=== PATIENT | male | born 1940 | race African-American/Black ===

== ENCOUNTER 2019-11-12 17:53 | Inpatient (IN) | payer OTHER, MEDICAID ==
[~2019-11-12] VITALS: Ht 157.5 cm; Wt 64.9 kg
[2019-11-12] VITALS: BP 164/71
[2019-11-12] MEDS ORDERED: LABETALOL 5MG/ML SYR 20 MG/4 ML SYRINGE IV ONE (18:30)
[2019-11-12 19:02] LABS: BASOPHILS % 0.7 % (0.0-2.0); EOSINOPHILS % 0.9 % (0.0-5.0); HEMATOCRIT. 40.8 % (42.0-52.0); HEMOGLOBIN. 14.1 g/dL (14.0-18.0); LYMPHOCYTES % 22.3 % (20.0-50.0); MEAN CORPUSCULAR HEMOGLOBIN 32.2 pg (28.0-32.0); MEAN CORPUSCULAR VOLUME 93.4 fL (80.0-94.0); MEAN PLATELET VOLUME 8.9 fl (7.4-10.4); MONOCYTES % 8.2 % (2.0-8.0); NEUTROPHILS % 67.9 % (40.0-76.0); PLATELET 184 x1000/uL (130-400); RED BLOOD CELL COUNT 4.37 mill/uL (4.7-6.1); RED CELL DISTRIBUTION WIDTH 13.3 % (11.6-14.6)
[2019-11-12 19:03] LABS: CHLORIDE 105 mEq/L (98-107)
[2019-11-12 19:07] LABS: PROTHROMBIN TIME 10.5 sec (9.6-11.0)
[2019-11-12 19:08] LABS: ETHANOL BLOOD < 10 mg/dL
[2019-11-12 19:11] LABS: LDL CHOLESTEROL 93 mg/dL (5-100)
[2019-11-12 19:12] LABS: CREATINE KINASE 296 IU/L (39-308)
[2019-11-12 20:15] LABS: CLARITY URINE CLEAR (CLEAR); COLOR URINE YELLOW (YELLOW); KETONES URINE NEGATIVE (NEGATIVE); LEUKOCYTE ESTERASE URINE NEGATIVE (NEGATIVE); NITRITE URINE NEGATIVE (NEGATIVE); OCCULT BLOOD URINE NEGATIVE (NEGATIVE); PROTEIN URINE NEGATIVE (NEGATIVE); SPECIFIC GRAVITY URINE 1.025 (1.005-1.030); UROBILINOGEN URINE 0.2 E.U./dL (0.2-1.0)
[2019-11-12 20:50] LABS: *AMPHETAMINES SCREEN URINE NEGATIVE (NEGATIVE); *BARBITURATES SCREEN URINE NEGATIVE (NEGATIVE); *BENZODIAZEPINES SCREEN URINE NEGATIVE (NEGATIVE); *COCAINE SCREEN URINE NEGATIVE (NEGATIVE)
[2019-11-12 20:51] LABS: CANNABINOID URINE SCREEN NEGATIVE (NEGATIVE); METHADONE URINE SCREEN NEGATIVE (NEGATIVE); OPIATES URINE SCREEN NEGATIVE (NEGATIVE); PHENCYCLIDINE URINE SCREEN NEGATIVE (NEGATIVE)
[2019-11-12] MEDS ORDERED: ONDANSETRON HCL 4MG/2ML INJ IV PRN (22:00)
[2019-11-12] MEDS ORDERED: ATORVASTATIN CALCIUM 40MG TABLET PO SCH (22:00)
[2019-11-12] MEDS ORDERED: HYDRALAZINE 20MG/ML VIAL IV PRN (22:00)
[2019-11-12] MEDS ORDERED: ACETAMINOPHEN 325MG TABLET PO PRN (22:00)
[2019-11-12 22:44] VITALS: BP 170/90
[2019-11-12 23:00] VITALS: BP 170/90
[2019-11-12] MEDS ORDERED: IOHEXOL-350 100 ML BOTTLE ONE (23:08)
[2019-11-12] MEDS ORDERED: ATOR20TA PO (23:37)
[2019-11-13] VITALS (7 sets, daily range): BP systolic 127–164; BP diastolic 71–88
[2019-11-13 06:18] LABS: CHLORIDE 111 mEq/L (98-107)
[2019-11-13 06:31] LABS: LDL CHOLESTEROL 86 mg/dL (5-100)
[2019-11-13 06:32] LABS: HDL CHOLESTEROL 33 mg/dL (40-59)
[2019-11-13 06:46] LABS: BASOPHILS % 0.6 % (0.0-2.0); EOSINOPHILS % 1.6 % (0.0-5.0); HEMATOCRIT. 39.4 % (42.0-52.0); HEMOGLOBIN. 13.8 g/dL (14.0-18.0); LYMPHOCYTES % 22.6 % (20.0-50.0); MEAN CORPUSCULAR HEMOGLOBIN 32.4 pg (28.0-32.0); MEAN CORPUSCULAR VOLUME 92.9 fL (80.0-94.0); MONOCYTES % 9.3 % (2.0-8.0); NEUTROPHILS % 65.9 % (40.0-76.0); PLATELET 182 x1000/uL (130-400); RED BLOOD CELL COUNT 4.24 mill/uL (4.7-6.1); RED CELL DISTRIBUTION WIDTH 13.6 % (11.6-14.6)
[2019-11-13] MEDS: ASPIRIN 81MG EC TABLET PO SCH (09:15)
[2019-11-13] MEDS: HEPARIN 5000 UNITS/ML VIAL SUBCUT SCH ×2 (09:16→20:03)
[2019-11-13] MEDS: POTASSIUM CHLORIDE 20MEQ TABLET SR PO SCH (11:51)
[2019-11-13] MEDS: AMLODIPINE 5MG TABLET PO SCH (11:52)
[2019-11-13 14:35] LABS: FOLIC ACID (FOLATE) SERUM > 20.00 ng/mL (>5.38)
[2019-11-13 14:46] LABS: VITAMIN B12 SERUM 275 pg/mL (211-911)
[2019-11-13 16:40] LABS: FERRITIN 87 ng/mL (22-322)
[2019-11-13] MEDS: EZETIMIBE 10MG TABLET PO SCH (16:47)
[2019-11-14 00:13] VITALS: BP 148/76
[2019-11-14 04:18] VITALS: BP 121/60
[2019-11-14 06:25] LABS: CHLORIDE 109 mEq/L (98-107)
[2019-11-14 06:50] LABS: BASOPHILS % 0.6 % (0.0-2.0); EOSINOPHILS % 2.1 % (0.0-5.0); HEMATOCRIT. 39.3 % (42.0-52.0); HEMOGLOBIN. 13.5 g/dL (14.0-18.0); LYMPHOCYTES % 22.5 % (20.0-50.0); MEAN CORPUSCULAR VOLUME 93.2 fL (80.0-94.0); MEAN PLATELET VOLUME 9.2 fl (7.4-10.4); MONOCYTES % 9.4 % (2.0-8.0); NEUTROPHILS % 65.4 % (40.0-76.0); PLATELET 178 x1000/uL (130-400); RED BLOOD CELL COUNT 4.22 mill/uL (4.7-6.1); RED CELL DISTRIBUTION WIDTH 13.4 % (11.6-14.6)
[2019-11-14 08:00] VITALS: BP 154/80
[2019-11-14] MEDS: POTASSIUM CHLORIDE 20MEQ TABLET SR PO SCH (09:37)
[2019-11-14] MEDS: AMLODIPINE 5MG TABLET PO SCH (09:38)
[2019-11-14] MEDS: EZETIMIBE 10MG TABLET PO SCH (09:38)
[2019-11-14] MEDS: HEPARIN 5000 UNITS/ML VIAL SUBCUT SCH ×2 (09:38→20:00)
[2019-11-14] MEDS: ASPIRIN 81MG EC TABLET PO SCH (09:38)
[2019-11-14 12:00] VITALS: BP 138/69
[2019-11-14] MEDS ORDERED: HYDR-4134 PO (14:44)
[2019-11-14] MEDS ORDERED: CLOP75TA4 MT (14:44)
[2019-11-14] MEDS ORDERED: LIP40 PO (14:44)
[2019-11-14] MEDS ORDERED: AMLO5TAB88 PO (14:44)
[2019-11-14] MEDS ORDERED: ASPI-1158 PO (14:44)
[2019-11-14] MEDS: HYDRALAZINE HCL 25MG TABLET PO SCH ×2 (14:51→19:59)
[2019-11-14] MEDS: CLOPIDOGREL 75MG TABLET PO SCH (14:53)
[2019-11-14 16:00] VITALS: BP 143/68
[2019-11-14] MEDS: ATORVASTATIN CALCIUM 40MG TABLET PO SCH (19:59)
[2019-11-14 20:43] VITALS: BP 156/80
[2019-11-15] VITALS: BP 171/84
[2019-11-15 04:00] VITALS: BP 141/79
[2019-11-15] MEDS: HYDRALAZINE HCL 25MG TABLET PO SCH (04:33)
[2019-11-15 06:56] LABS: BASOPHILS % 0.6 % (0.0-2.0); EOSINOPHILS % 2.7 % (0.0-5.0); HEMATOCRIT. 41.5 % (42.0-52.0); HEMOGLOBIN. 14.2 g/dL (14.0-18.0); LYMPHOCYTES % 22.2 % (20.0-50.0); MEAN CORPUSCULAR HEMOGLOBIN 31.8 pg (28.0-32.0); MEAN CORPUSCULAR VOLUME 93.2 fL (80.0-94.0); MEAN PLATELET VOLUME 9.2 fl (7.4-10.4); MONOCYTES % 8.3 % (2.0-8.0); NEUTROPHILS % 66.2 % (40.0-76.0); PLATELET 188 x1000/uL (130-400); RED BLOOD CELL COUNT 4.45 mill/uL (4.7-6.1); RED CELL DISTRIBUTION WIDTH 13.6 % (11.6-14.6)
[2019-11-15 07:05] LABS: CHLORIDE 108 mEq/L (98-107)
[2019-11-15 08:01] VITALS: BP 150/68
[2019-11-15] MEDS: EZETIMIBE 10MG TABLET PO SCH (08:58)
[2019-11-15] MEDS: ASPIRIN 81MG EC TABLET PO SCH (08:58)
[2019-11-15] MEDS: CLOPIDOGREL 75MG TABLET PO SCH (08:59)
[2019-11-15] MEDS: HEPARIN 5000 UNITS/ML VIAL SUBCUT SCH ×2 (08:59→20:48)
[2019-11-15] MEDS: AMLODIPINE 5MG TABLET PO SCH ×2 (08:59→20:51)
[2019-11-15 11:59] VITALS: BP 110/56
[2019-11-15] MEDS: HYDRALAZINE HCL 50MG TABLET PO SCH ×2 (14:38→20:48)
[2019-11-15 15:37] VITALS: BP 108/68
[2019-11-15 20:00] VITALS: BP 129/73
[2019-11-15] MEDS: ATORVASTATIN CALCIUM 40MG TABLET PO SCH (20:48)
[2019-11-16] VITALS (7 sets, daily range): BP systolic 106–137; BP diastolic 57–78
[2019-11-16] MEDS: HYDRALAZINE HCL 50MG TABLET PO SCH ×3 (05:03→22:05)
[2019-11-16 05:05] LABS: BASOPHILS % 0.9 % (0.0-2.0); EOSINOPHILS % 2.4 % (0.0-5.0); HEMATOCRIT. 42.9 % (42.0-52.0); HEMOGLOBIN. 14.6 g/dL (14.0-18.0); LYMPHOCYTES % 21.8 % (20.0-50.0); MEAN CORPUSCULAR HEMOGLOBIN 31.7 pg (28.0-32.0); MEAN CORPUSCULAR VOLUME 93.3 fL (80.0-94.0); MEAN PLATELET VOLUME 8.9 fl (7.4-10.4); NEUTROPHILS % 66.9 % (40.0-76.0); PLATELET 191 x1000/uL (130-400); RED CELL DISTRIBUTION WIDTH 13.3 % (11.6-14.6)
[2019-11-16 05:32] LABS: CHLORIDE 108 mEq/L (98-107)
[2019-11-16] MEDS: CLOPIDOGREL 75MG TABLET PO SCH (08:53)
[2019-11-16] MEDS: ASPIRIN 81MG EC TABLET PO SCH (08:53)
[2019-11-16] MEDS: EZETIMIBE 10MG TABLET PO SCH (08:53)
[2019-11-16] MEDS: AMLODIPINE 5MG TABLET PO SCH ×2 (08:53→22:06)
[2019-11-16] MEDS: HEPARIN 5000 UNITS/ML VIAL SUBCUT SCH ×2 (08:54→22:06)
[2019-11-16] MEDS: ATORVASTATIN CALCIUM 40MG TABLET PO SCH (22:05)
[2019-11-17] VITALS: BP 123/73
[2019-11-17 04:00] VITALS: BP 136/77
[2019-11-17] MEDS: HYDRALAZINE HCL 50MG TABLET PO SCH ×2 (06:38→14:00)
[2019-11-17 06:54] LABS: BASOPHILS % 0.5 % (0.0-2.0); EOSINOPHILS % 1.1 % (0.0-5.0); HEMATOCRIT. 39.8 % (42.0-52.0); HEMOGLOBIN. 13.9 g/dL (14.0-18.0); LYMPHOCYTES % 18.2 % (20.0-50.0); MEAN CORPUSCULAR HEMOGLOBIN 32.3 pg (28.0-32.0); MEAN CORPUSCULAR VOLUME 92.8 fL (80.0-94.0); MEAN PLATELET VOLUME 9.1 fl (7.4-10.4); MONOCYTES % 7.8 % (2.0-8.0); NEUTROPHILS % 72.4 % (40.0-76.0); PLATELET 198 x1000/uL (130-400); RED BLOOD CELL COUNT 4.29 mill/uL (4.7-6.1); RED CELL DISTRIBUTION WIDTH 13.7 % (11.6-14.6)
[2019-11-17 07:01] LABS: CHLORIDE 108 mEq/L (98-107)
[2019-11-17 08:00] VITALS: BP 102/55
[2019-11-17] MEDS: AMLODIPINE 5MG TABLET PO SCH (09:00)
[2019-11-17] MEDS: ASPIRIN 81MG EC TABLET PO SCH (09:09)
[2019-11-17] MEDS: EZETIMIBE 10MG TABLET PO SCH (09:09)
[2019-11-17] MEDS: CLOPIDOGREL 75MG TABLET PO SCH (09:09)
[2019-11-17] MEDS: HEPARIN 5000 UNITS/ML VIAL SUBCUT SCH (09:10)
[2019-11-17 12:00] VITALS: BP 95/58
[2019-11-17 16:00] VITALS: BP 100/60
[2019-11-17 17:30] VITALS: BP 100/60
== END 2019-11-17 18:10 | DRG 65 ==
LOC: ER 17:53 → 6WST 20:16 → EDBEDREQSVC 20:22 → EDBEDREQ 20:22 → EDBEDREQTM 20:22 → ENRESERV 21:04
PROVIDERS: ADMIT Internal Medicine; ATTEND Internal Medicine
PROC: 4A00X4Z Measurement of Central Nervous Electrical Activity, External Approach (ICD-10-PCS; principal; 2019-11-14)
DX: I63.9 Cerebral infarction, unspecified (principal); G81.94 Hemiplegia, unspecified affecting left nondominant side; I16.1 Hypertensive emergency; D64.9 Anemia, unspecified; E87.6 Hypokalemia; E87.8 Other disorders of electrolyte and fluid balance, not elsewhere classified; I67.2 Cerebral atherosclerosis; E78.5 Hyperlipidemia, unspecified; R29.810 Facial weakness; R00.1 Bradycardia, unspecified; R29.6 Repeated falls; M17.0 Bilateral primary osteoarthritis of knee; I11.9 Hypertensive heart disease without heart failure; Z86.73 Personal history of transient ischemic attack (TIA), and cerebral infarction without residual deficits; Z03.818 Encounter for observation for suspected exposure to other biological agents ruled out
CPT/HCPCS: 36415; 70496; 70498; 70544; 70547; 70553; 71045; 73562; 80053; 80061; 80305; 80320; 81003; 82270; 82550; 82607; 82728; 82746; 82962; 83036; 83540; 83550; 83721; 83735; 83880; 84484; 85025; 85044; 87635; 93005; 93306; 93880; 95816; 96374; 97110; 97116; 97162; 97166; 97530; 99291; J1644; J3490; Q9967; G0480